=== PATIENT | male | born 1940 | race Caucasian/White ===

== ENCOUNTER 2024-06-26 12:35 | Emergency (ER) | payer MEDICARE, SELFPAY ==
[2024-06-26 12:36] VITALS: BP 156/114; PULSE 73; RESP 16; TEMP 36.4; O2SAT 99
--- NOTE | 2024-06-26 16:26 | EX.ED.DYSGE1 ---
HPI History of Present Illness Chief Complaint: Constipation PFSH PFS Home Medications ?Medication ?Instructions ?Recorded ?Last Taken ?Type ciprofloxacin HCl 500 mg tablet 500 mg PO BID #14 TABLETS 06/26/24 Unknown Rx Allergy/AdvReac Type Severity Reaction Status Date / Time No Known Allergies Allergy Verified 06/26/24 12:38 Social History Smoking Status: Former smoker EXAM Physical Exam Const Vital Signs: 06/26/24 12:36 06/26/24 17:08 06/26/24 21:00 Temperature 97.5 F L Temperature Source Oral Pulse Rate 73 97 59 L Respiratory Rate 16 18 18 Blood Pressure 156/114 H 147/78 H 152/74 H Blood Pressure Mean 128 101 100 Pulse Ox 99 98 99 Oxygen Delivery Method Room Air Room Air Room Air 06/26/24 21:16 Temperature 98.5 F Temperature Source Pulse Rate 59 L Respiratory Rate 18 Blood Pressure 152/74 H Blood Pressure Mean 100 Pulse Ox 99 Oxygen Delivery Method MDM MDM MDM Narrative Medical decision making narrative: HISTORY OF PRESENT ILLNESS: 83-year-old male presents with constipation. Notes he has not had a bowel movement for 2 weeks. He further states he tried doculax without relief notes some liquid stool per rectum. Also notes hx of prostate enlargement with occasional need to straight cath. He notes he need to do this has increased over the last 2 weeks. Denies fever, vomiting. Denies urinary complaint such as dysuria, urgency or frequency. REVIEW OF SYSTEMS: Pertinent positives: Constipation Pertinent negatives: Vomiting, fever PHYSICAL EXAM: Nursing triage notes reviewed, Vital signs reviewed Constitutional: please see mdm HENT: MMM Eyes: Pupils equal round and reactive to light, Extraocular muscles intact Neck: No stridor, no JVD, full neck ROM Lungs: Clear to auscultation, No wheezing or rales. No increased work of breathing, no conversational dyspnea, no accessory muscle use, no nasal flaring. No respiratory distress noted Heart: Regular rate and rhythm, No murmurs, No rubs and No gallops, 2+ distal pulses (radial, femoral, posterior tibial) in all extremities Abdomen: Soft, there is no tenderness, rigidity, rebound or guarding, no obvious peritoneal signs, no palpable pulsatile abdominal masses, no auscultated abdominal bruit : No CVAT Extremities: No edema Neuro: No new focal neurological deficits, cranial nerves II through XII intact, 5/5 strength in all present extremities. Intact sensation to light touch in all present extremities, 2+ reflexes bilateral patella tendons. Skin: No rash or lesions noted MEDICAL DECISION MAKING: Chief Complaint: Constipation External records reviewed: Reviewed prior imaging of the abdomen pelvis: No recent advanced imaging noted. Reviewed [facility] cannot find records. Per the patient he has chronic kidney disease with baseline creatinine 1.5 Factors affecting care: Prostate Social determinants of health: none History obtained from others: none Consults: none MDM Narrative: Patient was initially hemodynamically stable, afebrile and nontoxic-appearing. Initial exam with distended lower abdomen. Rectal exam without obvious bleeding, digital rectal exam revealed stool in rectal vault. Patient was manually disimpacted. There was some bleeding noted during disimpaction. Given bleeding concern for ischemic colitis. Gave soapsuds enema, IV fluids, Toradol for pain and initial resuscitation. Obtain labs to assess the patient's hemoglobin and hematocrit. Lactate to assess if he had any signs of endorgan hypoperfusion a CT scan abdomen pelvis oral contrast assess there is any mechanical obstruction. I considered the following differential diagnosis: AAA, small bowel obstruction, abdominal perforation, appendicitis, pancreatitis, hepatobiliary pathology (acute cholecystitis), mesenteric ischemia, pathology (ie nephrolithiasis, pyelonephritis). ALL IMAGES (IF OBTAINED) HAVE BEEN PERSONALLY REVIEWED AND INTERPRETED BY MYSELF. BMP without evidence of significant electrolyte abnormalities, no anion gap, no acute kidney injury. With hyponatremia, no other significant electrolyte abnormalities, no signs of metabolic acidosis or endorgan hypoperfusion, noted CKD this essentially baseline per the patient's report Lactate is wnl indicating no end-organ hypoperfusion and/or hypoxia. Urinalysis shows no evidence of urinary inflammation suggestive of UTI (given urinary retension and Khan catheter placement will give oral antibiotics) CT scan abdomen pelvis shows evidence of obstruction or perforation. Does show wall thickening consistent with constipation On reassessment patient noted complete improvement. Noted he had a large bowel movement here after disimpaction and soapsuds enema. He did not note any urinary output. Given he was bladder scan had a urinary volume of 350 cc's placed a Khan catheter. Did give the patient ciprofloxacin and urine for culture. Will have him follow-up with urology. The patient and/or family, caregivers express understanding. The patient and/or family, caregivers agrees with the plan. Shared decision making: I will have a discussion with the patient and or visitors regarding risk/benefits of further testing or admission. They will be made aware of of the risk/benefits inherent in this decision they will be given the opportunity to voice understanding. Total critical care time today provided was at least 0 minutes. This excludes separately billable procedures. Critical care time (if documented) is secondary to the patient having high probability of clinically significant/life threatening deterioration in the patient's condition which required my urgent intervention. Impression: 1. Constipation 2. Urinary retention Dispo: Discharge home This note was generated with [employer] dictation software. It may contain incorrect words, spelling, and punctuation that were not noted in review of the chart prior to signing. Lab Data Labs: Laboratory Results - last 24 hr 06/26/24 06/26/24 17:25 18:05 WBC 7.1 RBC 4.34 L Hgb 13.6 Hct 39.2 L MCV 90.3 MCH 31.3 MCHC 34.7 RDW Std Deviation 42.9 RDW Coeff of Kristy 13.0 Plt Count 151 MPV 9.9 Immature Gran % (Auto) 0.400 Neut % (Auto) 72.1 H Lymph % (Auto) 10.4 L Randall % (Auto) 17.0 H Eos % (Auto) 0.0 Baso % (Auto) 0.1 Absolute Neuts (auto) 5.1 Absolute Lymphs (auto) 0.73 L Nucleated RBC % 0 Sodium 128 L Potassium 4.1 Chloride 92 L Carbon Dioxide 23.0 Anion Gap 13 BUN 29 H Creatinine 1.70 H Estim Creat Clear Calc 28.95 Est GFR (MDRD) Af Amer 50 L Est GFR (MDRD) Non-Af 41 L BUN/Creatinine Ratio 17.1 Glucose 109 H Lactic Acid 1.8 Calcium 9.6 Total Bilirubin 0.70 AST 55 H ALT 28 Alkaline Phosphatase 40 L Total Protein 6.8 Albumin 4.1 Globulin 2.7 Albumin/Globulin Ratio 1.5 Lipase 50 Urine Color Yellow Urine Clarity Sl. Cloudy Urine pH 6.0 Ur Specific [place] 1.015 Urine Protein 30 H Urine Glucose (UA) Normal Urine Ketones 50 H Urine Occult Blood 50 H Urine Nitrite Negative Urine Bilirubin Negative Urine Urobilinogen Normal Ur Leukocyte Esterase 100 H Urine RBC 0-5 SEEN Urine WBC 5-10 SEEN Ur Squamous Epith Cells 0 SEEN Urine Bacteria RARE Urine Mucus 0 SEEN Radiography Diagnostic Testing: Clinical Impression(s) from Imaging Studies Abdomen CT 06/26/24 16:54 IMPRESSION: 1. No masses bowel obstruction abscess free fluid or free air. The appendix is not positively identified. 2. Circumferential thickening of the rectum with soft tissue stranding extending into the mesorectal fascia. Sequelae of proctocolitis is a consideration. 3. Atrophic LEFT kidney. Lobulated contour of the RIGHT kidney. No calcifications or komal obstruction however mild prominence of the RIGHT ureter. 4. No evidence of cholelithiasis. 5. LEFT hepatic cyst. Electronically Signed: Ezio Burdick MD at 19:42 EST , Discharge Plan Triage Chief Complaint: Constipation ED Provider: Casey Liriano Dx/Rx/DC Orders Instructions: ED Constipation (Adult), ED Urinary Retention, Male Prescriptions: New ciprofloxacin HCl 500 mg tablet 500 mg PO BID Qty: 14 0RF Primary Care Provider: Patricia Hernandez Referrals: Caesar Peoples MD [Med Staff - Active Staff] - Activity Restrictions/Additional Instructions: Thank you for trusting us with your care today! Please begin eating a diet that is high in indigestible plant fiber. This is fresh fruits and vegetables. Also go to your local grocery store and obtain fiber 1 cereal and eat this daily for breakfast to improve regularity. You may also use [id number] Colace, senna and MiraLAX for additional constipation relief Please drink more fluids by mouth I recommend Body Armor, Pedialyte, Gatorade or Powerade. Your urine had signs of inflammation. Given you straight catheter getting Khan catheter I started you on antibiotics. Please take antibiotics until course complete. Please take Tylenol (2 pills, 650 mg), ibuprofen (2 pills, 400 mg) every 6 hours as needed for pain and fever control. Please return to the emergency department if your symptoms change or worsen. Please follow with your primary care physician for further outpatient evaluation and management. Print Language: Telugu Disposition Disposition: Home, Self Care Discharge Date/Time: 06/26/24 21:46
--- NOTE | 2024-06-26 16:54 | CT_ITS ---
INDICATION: constipation, r/o obstruction EXAMINATION: CT ABDOMEN AND PELVIS WITHOUT CONTRAST - CT Abdomen And Pelvis W/O Contrast Injection TECHNIQUE: Helically acquired images were obtained of the abdomen and pelvis without oral or IV contrast. A radiation dose optimization technique was used for this scan. IV Contrast dosage and agent: None. Oral contrast: Oral contrast is present RADIATION DOSAGE (If Supplied By Facility): CTDIvol = ( 6.06 ) mGy, DLP = ( 298.48 ) mGycm COMPARISON: No pertinent previous examinations for comparison.. FINDINGS: LOWER CHEST: 1. Lung bases are clear. 2. No cardiomegaly or pericardial effusion. 3. No significant coronary vascular calcifications. LIVER: The liver has normal configuration and density given the limitation of noncontrast exam.. There is a low-density lesion LEFT hepatic lobe measuring 1.9 x 2.3 cm consistent with a cyst. GALLBLADDER AND BILIARY TREE: No calcified gallstones. No gallbladder distension or wall edema. No intra- or extrahepatic biliary ductal dilation. PANCREAS: No focal cystic or solid mass. SPLEEN: Normal size without focal cystic or solid mass. ADRENAL GLANDS: No nodules. KIDNEYS AND URETERS: Significant atrophy LEFT kidney. There is a LEFT extrarenal pelvis. Lobulated contour of the RIGHT kidney. No evidence of calcifications or obstructive uropathy although mild prominence of the RIGHT ureter to level of the RIGHT UVJ. PERITONEUM: No ascites or free air. No other fluid collection. BOWEL: Large and small bowel loops have normal configuration. Scattered diverticula without evidence diverticulitis. There is diffuse wall thickening of the rectal vault. Mild soft tissue stranding extends into the mesorectal fascia. No adenopathy or fluid collections noted. Normal appearance of the stomach. There are postoperative changes of repair of previous RIGHT inguinal hernia. LYMPH NODES: No enlarged mesenteric or retroperitoneal lymph nodes. VESSELS: Aorta is non-dilated. URINARY BLADDER: Unremarkable. REPRODUCTIVE ORGANS: No pelvic masses. ABDOMINAL WALL: No discrete abdominal or pelvic wall hernia. Postop changes of prior RIGHT inguinal hernia repair. BONES: No lytic or blastic abnormality. CT/Abdomen/Pel W ORAL Cont Only IMPRESSION: 1. No masses bowel obstruction abscess free fluid or free air. The appendix is not positively identified. 2. Circumferential thickening of the rectum with soft tissue stranding extending into the mesorectal fascia. Sequelae of proctocolitis is a consideration. 3. Atrophic LEFT kidney. Lobulated contour of the RIGHT kidney. No calcifications or komal obstruction however mild prominence of the RIGHT ureter. 4. No evidence of cholelithiasis. 5. LEFT hepatic cyst. Electronically Signed: Ezio Burdick MD at 19:42 EST ,
[2024-06-26 17:08] VITALS: BP 147/78; PULSE 97; RESP 18; O2SAT 98
[2024-06-26] MEDS: Ondansetron 4 MG/2 ML Vial IV (17:27)
[2024-06-26] MEDS: Ketorolac 15 MG/ML Vial IV (17:27)
[2024-06-26] MEDS: 0.9% Normal Saline (1000mL) 1,000 ML 999 ML IV (17:27)
[2024-06-26 17:36] VITALS: BMI 18.8
[2024-06-26 17:42] LABS: Absolute Lymphocyte Count 0.73 X10^3/uL (0.83-4.51); Absolute Neutrophil Count 5.1 X10^3/uL (2.0-7.7); Basophil# 0.01 X10^3/uL; Basophil% 0.1 % (0-1); Hematocrit 39.2 % (40-54); Hemoglobin 13.6 g/dL (13.0-16.5); Lymphocyte # 0.73 X10^3/ul (0.83-4.51); Lymphocyte % 10.4 % (19-41); Mean Corp Hgb Conc 34.7 g/dL (32-36); Mean Corpuscular Hgb 31.3 pg (27.0-32.0); Mean Corpuscular Volume 90.3 fL (80-94); Mean Platelet Vol. 9.9 fl (6.2-12.0); NRBC Flagged by Analyzer 0 % (0-5); Neutrophil # 5.08 X10^3/uL (2.7-7.7); Neutrophil % 72.1 % (47-70); Platelet Count 151 K/mm3 (150-450); RBC Distribution Width SD 42.9 fl (35.1-43.9); Red Blood Count 4.34 M/mm3 (4.6-6.2); White Blood Count 7.1 K/mm3 (4.4-11.0)
[2024-06-26 17:57] LABS: ALB/GLOB Ratio 1.5 RATIO (0.9-2.4); AST(SGOT) 55 U/L (15-37); Alanine Aminotransfer ALT/SGPT 28 U/L (16-61); Albumin, Serum 4.1 g/dL (3.2-5.0); Alkaline Phosphatase 40 U/L (45-117); Anion Gap 13 (5-15); BUN 29 mg/dL (7-18); BUN/Creat Ratio 17.1 RATIO (10-20); Calcium,Total 9.6 mg/dL (8.5-10.1); Chloride 92 mmol/L (98-107); EST Glomerular Filtration Rate 41 mL/min (>60); Est Glom Filt Rate - Afr Amer 50 mL/min (>60); Estimated Creatinine Clearance 28.95 ml/min; Globulin 2.7 g/dL (2.2-4.2); Glucose 109 mg/dL (74-106); Lipase 50 U/L (13-75); Potassium 4.1 mmol/L (3.5-5.1); Protein, Total 6.8 g/dL (6.4-8.2); Sodium Level 128 mmol/L (136-145)
[2024-06-26 18:16] LABS: Mucous, Urine 0 SEEN /hpf (<or=2+); Squamous Epithelial Cells - UA 0 SEEN /hpf (0-5)
[2024-06-26 18:19] LABS: Color, Urine Yellow (Yellow); Glucose, Dipstick Normal (Normal); Ketone-Dipstick 50 mg/dl (Negative); Leukocyte Esterase-Dipstick 100 /ul (Negative); Nitrite-Dipstick Negative (Negative); Occult Blood-Urine 50 /ul (Negative); Protein-Dipstick 30 mg/dl (Negative); Specific Gravity, Urine 1.015 (1.002-1.030); Urine Bilirubin Dipstick Negative (Negative); Urine Clarity Sl. Cloudy (Clear); Urine Urobilinogen Normal (Normal)
[2024-06-26 18:27] LABS: Lactic Acid 1.8 mmol/L (0.4-1.9)
[2024-06-26 18:33] LABS: Bacteria RARE /hpf (None Seen); Red Blood Cells-Urine 0-5 SEEN /hpf (0-5); White Blood Cells 5-10 SEEN /hpf (0-5)
[2024-06-26 21:00] VITALS: BP 152/74; PULSE 59; RESP 18; O2SAT 99
[2024-06-26 21:16] VITALS: BP 152/74; PULSE 59; RESP 18; TEMP 36.9; O2SAT 99
[2024-06-26] MEDS: Lidocaine Jelly 2% 20 ML Syringe (URO-JET) 1 APPLIC TOPICAL (21:20)
[2024-06-26] MEDS: Ciprofloxacin 500 MG Tablet PO (21:20)
== END 2024-06-26 21:46 | disposition home or self-care (01) ==
PROVIDERS: Emergency Provider Emergency Medicine; PCP Internal Medicine; Visit Provider Emergency Medicine
DX: K59.00 Constipation, unspecified (principal); N18.9 Chronic kidney disease, unspecified; R33.9 Retention of urine, unspecified; E87.1 Hypo-osmolality and hyponatremia; Z79.899 Other long term (current) drug therapy; Z87.891 Personal history of nicotine dependence
CPT/HCPCS: 51702; 74176; 80053; 81001; 83605; 83690; 85025; 96361; 96374; 96375; 99285; J2405